=== PATIENT | female | born 1990 ===

== ENCOUNTER 2021-08-13 10:31 | Day surgery (SDC) | payer OTHER | END 2021-08-13 19:25 | disposition home or self-care (01) | LOC: CIR.AMB 10:31 | PROVIDERS: ATTEND Obstetrics & Gynecology | DX: R87.810 Cervical high risk human papillomavirus (HPV) DNA test positive (principal); R87.618 Other abnormal cytological findings on specimens from cervix uteri; R93.5 Abnormal findings on diagnostic imaging of other abdominal regions, including retroperitoneum; J45.909 Unspecified asthma, uncomplicated ==